=== PATIENT | female | born 1980 | race Caucasian/White ===

== ENCOUNTER 2017-12-31 09:22 | Emergency (ER) | payer MEDICAID ==
[2017-12-31 10:13] LABS: ADD MAN DIFF? NO
[2017-12-31 10:18] LABS: WHITE BLOOD COUNT 9.4 10^3/ul (4.8-10.8)
[2017-12-31 10:18] LABS: BASOPHIL # 0.1 10^3/ul (0.0-0.1); BASOPHILS % 0.5 % (0.0-2.0); EOSINOPHILS % 0.2 % (0.0-7.0); HEMOGLOBIN 12.3 g/dl (12.0-16.0); LYMPHOCYTES # 1.5 10^3/ul (0.8-2.9); LYMPHOCYTES % 15.8 % (15.0-51.0); MEAN CORPUSCULAR HEMOGLOBIN 29.3 pg (29.0-33.0); MEAN CORPUSCULAR HGB CONC 33.2 g/dl (32.0-37.0); MEAN CORPUSCULAR VOLUME 88.1 fl (82.0-101.0); MEAN PLATELET VOLUME 9.3 fl (7.4-10.4); MONOCYTE # 0.5 10^3/ul (0.3-0.9); MONOCYTES % 4.9 % (0.0-11.0); NEUTROPHIL # 7.3 10^3/ul (1.6-7.5); NEUTROPHILS % 77.7 % (39.0-77.0); PLATELET COUNT 307 10^3/UL (140-415)
[2017-12-31 10:26] LABS: ADD UMIC YES; UR ASCORBIC ACID 40 mg/dL (NEGATIVE); UR BACTERIA FEW /HPF (NONE SEEN); UR BILIRUBIN (Dip) NEGATIVE (NEGATIVE); UR BLOOD (Dip) 2+ mg/dL (NEGATIVE); UR CLARITY SLIGHTLY CLOUDY (CLEAR); UR COLOR YELLOW (YELLOW); UR GLUCOSE (Dip) NEGATIVE (NEGATIVE); UR KETONES (Dip) TRACE mg/dL (NEGATIVE); UR LEUKOCYTE ESTERASE (Dip) NEGATIVE Leu/ul (NEGATIVE); UR MUCUS FEW /HPF (NONE SEEN); UR NITRITE (Dip) NEGATIVE (NEGATIVE); UR RBC 5 /HPF (0-5); UR SPECIFIC GRAVITY (Dip) 1.025 (1.003-1.030); UR SQUAMOUS EPITHELIAL CELL MODERATE /HPF (FEW); UR TOTAL PROTEIN (Dip) NEGATIVE (NEGATIVE); UR UROBILINOGEN (Dip) NEGATIVE (NEGATIVE); UR WBC 1 /HPF (0-5)
[2017-12-31 10:38] LABS: INR 0.98; PROTIME 13.1 Sec (11.9-14.9)
[2017-12-31 10:39] LABS: PARTIAL THROMBOPLASTIN TIME 26.6 Sec (25.0-35.0)
== END 2017-12-31 12:09 | disposition home or self-care (01) ==
LOC: FTE 09:22
DX: O20.9 Hemorrhage in early pregnancy, unspecified (principal); R10.2 Pelvic and perineal pain; Z3A.19 19 weeks gestation of pregnancy
CPT/HCPCS: 36415; 76805; 81001; 84702; 85025; 85610; 85730; 86900; 86901; 99284-25

== ENCOUNTER 2018-01-02 08:35 | Observation (INO) | payer MEDICAID ==
[2018-01-02 09:08] LABS: ADD MAN DIFF? NO
[2018-01-02 09:15] LABS: BASOPHIL # 0.1 10^3/ul (0.0-0.1); BASOPHILS % 0.6 % (0.0-2.0); EOSINOPHILS # 0.1 10^3/ul (0.0-0.5); EOSINOPHILS % 0.5 % (0.0-7.0); HEMATOCRIT 35.9 % (37.0-47.0); HEMOGLOBIN 11.9 g/dl (12.0-16.0); LYMPHOCYTES # 1.7 10^3/ul (0.8-2.9); LYMPHOCYTES % 17.1 % (15.0-51.0); MEAN CORPUSCULAR HEMOGLOBIN 28.9 pg (29.0-33.0); MEAN CORPUSCULAR HGB CONC 33.1 g/dl (32.0-37.0); MEAN CORPUSCULAR VOLUME 87.1 fl (82.0-101.0); MEAN PLATELET VOLUME 9.3 fl (7.4-10.4); MONOCYTE # 0.5 10^3/ul (0.3-0.9); MONOCYTES % 4.6 % (0.0-11.0); NEUTROPHIL # 7.6 10^3/ul (1.6-7.5); NEUTROPHILS % 76.3 % (39.0-77.0); PLATELET COUNT 296 10^3/UL (140-415); RED BLOOD COUNT 4.12 10^6/ul (4.20-5.40); RED CELL DISTRIBUTION WIDTH 14.3 % (11.5-14.5)
[2018-01-02 09:31] LABS: ADD UMIC YES; UR ASCORBIC ACID NEGATIVE (NEGATIVE); UR BACTERIA FEW /HPF (NONE SEEN); UR BILIRUBIN (Dip) NEGATIVE (NEGATIVE); UR BLOOD (Dip) 3+ mg/dL (NEGATIVE); UR CLARITY SLIGHTLY CLOUDY (CLEAR); UR COLOR YELLOW (YELLOW); UR GLUCOSE (Dip) NEGATIVE (NEGATIVE); UR KETONES (Dip) NEGATIVE (NEGATIVE); UR LEUKOCYTE ESTERASE (Dip) NEGATIVE Leu/ul (NEGATIVE); UR MUCUS MANY /HPF (NONE SEEN); UR NITRITE (Dip) NEGATIVE (NEGATIVE); UR RBC 4 /HPF (0-5); UR SPECIFIC GRAVITY (Dip) 1.023 (1.003-1.030); UR SQUAMOUS EPITHELIAL CELL MODERATE /HPF (FEW); UR TOTAL PROTEIN (Dip) NEGATIVE (NEGATIVE); UR UROBILINOGEN (Dip) NEGATIVE (NEGATIVE); UR WBC 3 /HPF (0-5)
[2018-01-02] MEDS ORDERED: ONDANSETRON 4 MG INJ IV (10:30)
[2018-01-02] MEDS: SOD CHLORIDE 0.9% 1,000 ML IV ×2 (10:35→19:27)
[2018-01-02] MEDS: ACETAMINOPHEN 325 MG TAB PO (14:42)
[2018-01-03] MEDS: LACTATED RINGER'S 1,000 ML IV (03:51)
[2018-01-03 10:09] LABS: ADD MAN DIFF? NO
[2018-01-03 10:18] LABS: BASOPHILS % 0.4 % (0.0-2.0); EOSINOPHILS # 0.1 10^3/ul (0.0-0.5); EOSINOPHILS % 0.5 % (0.0-7.0); HEMATOCRIT 33.2 % (37.0-47.0); HEMOGLOBIN 11.3 g/dl (12.0-16.0); LYMPHOCYTES # 1.7 10^3/ul (0.8-2.9); LYMPHOCYTES % 16.2 % (15.0-51.0); MEAN CORPUSCULAR HEMOGLOBIN 29.8 pg (29.0-33.0); MEAN CORPUSCULAR VOLUME 87.6 fl (82.0-101.0); MEAN PLATELET VOLUME 9.9 fl (7.4-10.4); MONOCYTE # 0.5 10^3/ul (0.3-0.9); MONOCYTES % 4.7 % (0.0-11.0); NEUTROPHILS % 77.5 % (39.0-77.0); PLATELET COUNT 289 10^3/UL (140-415); RED BLOOD COUNT 3.79 10^6/ul (4.20-5.40); RED CELL DISTRIBUTION WIDTH 14.1 % (11.5-14.5)
[2018-01-03 10:18] LABS: WHITE BLOOD COUNT 10.3 10^3/ul (4.8-10.8)
== END 2018-01-03 13:16 | disposition home or self-care (01) ==
LOC: FTE 08:35 → PP1 10:26
DX: O44.32 Partial placenta previa with hemorrhage, second trimester (principal); O45.92 Premature separation of placenta, unspecified, second trimester; O20.0 Threatened abortion; Z3A.19 19 weeks gestation of pregnancy
CPT/HCPCS: 36415; 76805; 81001; 84702; 85025; 99217; 99285-25

== ENCOUNTER 2018-01-26 10:34 | Outpatient (CLI) | payer MEDICAID | END 2018-01-26 14:15 | disposition home or self-care (01) | LOC: OBT 10:34 → L-D 10:34 → OBT 14:15 | DX: O46.92 Antepartum hemorrhage, unspecified, second trimester (principal); Z3A.22 22 weeks gestation of pregnancy | CPT/HCPCS: 76815; 76817 ==

== ENCOUNTER 2018-05-05 05:14 | Inpatient (IN) | payer MEDICAID ==
[2018-05-05] MEDS ORDERED: LIDOCAINE 1% (MPF) 30 ML INJ INJ (06:00)
[2018-05-05] MEDS ORDERED: OXYTOCIN 30 UNITS/LR 500 ML IV ×3 (06:00→18:00)
[2018-05-05] MEDS ORDERED: METHYLERGONOVINE 0.2 MG INJ IM ×2 (06:00→18:00)
[2018-05-05] MEDS ORDERED: CARBOPROST 250 MCG INJ IM ×2 (06:00→18:00)
[2018-05-05] MEDS ORDERED: MISOPROSTOL 200 MCG TAB PR ×2 (06:00→18:00)
[2018-05-05] MEDS ORDERED: BUTORPHANOL 2 MG INJ IV (06:00)
[2018-05-05] MEDS: LACTATED RINGER'S 1,000 ML IV ×3 (06:26→13:50)
[2018-05-05] MEDS: AMPICILLIN 2 GM/NS (PMX) 100 ML IV (06:27)
[2018-05-05 06:46] LABS: ADD MAN DIFF? NO
[2018-05-05 06:48] LABS: WHITE BLOOD COUNT 9.5 10^3/ul (4.8-10.8)
[2018-05-05 06:48] LABS: BASOPHILS % 0.4 % (0.0-2.0); EOSINOPHILS % 0.4 % (0.0-7.0); HEMATOCRIT 36.2 % (37.0-47.0); HEMOGLOBIN 12.1 g/dl (12.0-16.0); LYMPHOCYTES # 2.1 10^3/ul (0.8-2.9); LYMPHOCYTES % 21.9 % (15.0-51.0); MEAN CORPUSCULAR HEMOGLOBIN 29.1 pg (29.0-33.0); MEAN CORPUSCULAR HGB CONC 33.4 g/dl (32.0-37.0); MONOCYTE # 0.7 10^3/ul (0.3-0.9); MONOCYTES % 7.1 % (0.0-11.0); NEUTROPHIL # 6.6 10^3/ul (1.6-7.5); PLATELET COUNT 258 10^3/UL (140-415); RED BLOOD COUNT 4.16 10^6/ul (4.20-5.40); RED CELL DISTRIBUTION WIDTH 14.5 % (11.5-14.5)
[2018-05-05] MEDS: BETAMET NA PHOS/AC(6 MG/ML) 2 ML INJ SYG IM (06:48)
[2018-05-05 07:50] LABS: INR 0.93; PROTIME 12.5 Sec (11.9-14.9)
[2018-05-05 07:51] LABS: PARTIAL THROMBOPLASTIN TIME 26.8 Sec (23.0-35.0)
[2018-05-05 08:00] LABS: HEPATITIS B SURFACE ANTIGEN NEGATIVE (NEGATIVE)
[2018-05-05] MEDS: AMPICILLIN 1 GM/NS (PMX) 50 ML IV ×2 (11:52→16:30)
[2018-05-05] MEDS: OXYTOCIN 30 UNITS/LR 500 ML IV ×3 (12:06→17:53)
[2018-05-05] MEDS ORDERED: FENTAnyl 2MCG/ML-ROPIV 0.2% 100 ML (13:04)
[2018-05-05] MEDS ORDERED: FENTAnyl 2MCG/ML-ROPIV 0.2% 100 ML BAG EPI (14:00)
[2018-05-05] MEDS ORDERED: NALOXONE (0.4 MG/ML) INJ IV (14:00)
[2018-05-05 15:14] LABS: RAPID PLASMA REAGIN NONREACTIVE (NR)
[2018-05-05] MEDS ORDERED: LIDOCAINE 1% (MPF) 30 ML INJ (15:30)
[2018-05-05] MEDS ORDERED: LANOLIN HPA 1 PKT TOP (18:00)
[2018-05-05] MEDS: IBUPROFEN 600 MG TAB PO ×2 (18:00→23:53)
[2018-05-05] MEDS ORDERED: ONDANSETRON 4 MG INJ IV (18:00)
[2018-05-05] MEDS ORDERED: OXYCODONE/ASPIRIN (4.88/325) TAB PO (18:00)
[2018-05-05] MEDS ORDERED: WITCH HAZEL/GLYCERIN PAD PR (18:00)
[2018-05-05] MEDS ORDERED: NACL 0.9% 3 ML SYG IV (18:00)
[2018-05-05] MEDS ORDERED: BENZOCAINE 20% 56 ML SPRAY TOP (18:00)
[2018-05-05] MEDS: SENNA/DOCUSATE NA (8.6MG/50MG) TAB PO (21:20)
[2018-05-06] MEDS: IBUPROFEN 600 MG TAB PO ×4 (06:01→23:53)
[2018-05-06 08:52] LABS: ADD MAN DIFF? NO
[2018-05-06] MEDS: SENNA/DOCUSATE NA (8.6MG/50MG) TAB PO ×2 (09:00→21:55)
[2018-05-06 09:23] LABS: BASOPHILS % 0.3 % (0.0-2.0); EOSINOPHILS % 0.1 % (0.0-7.0); HEMATOCRIT 28.7 % (37.0-47.0); HEMOGLOBIN 9.6 g/dl (12.0-16.0); LYMPHOCYTES # 2.3 10^3/ul (0.8-2.9); LYMPHOCYTES % 14.8 % (15.0-51.0); MEAN CORPUSCULAR HEMOGLOBIN 29.4 pg (29.0-33.0); MEAN CORPUSCULAR HGB CONC 33.4 g/dl (32.0-37.0); MEAN PLATELET VOLUME 10.1 fl (7.4-10.4); MONOCYTE # 1.1 10^3/ul (0.3-0.9); MONOCYTES % 6.8 % (0.0-11.0); PLATELET COUNT 217 10^3/UL (140-415); RED BLOOD COUNT 3.26 10^6/ul (4.20-5.40); RED CELL DISTRIBUTION WIDTH 14.6 % (11.5-14.5)
[2018-05-06 09:23] LABS: WHITE BLOOD COUNT 15.6 10^3/ul (4.8-10.8)
[2018-05-06 11:36] LABS: RUBELLA ANTIBODY - IGG 6.05 index
[2018-05-06] MEDS: OXYCODONE/ASPIRIN (4.88/325) TAB PO (13:52)
[2018-05-06] MEDS: POLYSACCHARIDE IRON COMPLEX CAP PO (21:55)
[2018-05-06] MEDS: DOCUSATE SODIUM 100 MG CAP PO (21:55)
[2018-05-07] MEDS: IBUPROFEN 600 MG TAB PO (05:51)
[2018-05-07] MEDS: POLYSACCHARIDE IRON COMPLEX CAP PO (09:53)
[2018-05-07] MEDS: DOCUSATE SODIUM 100 MG CAP PO (09:53)
[2018-05-07] MEDS: SENNA/DOCUSATE NA (8.6MG/50MG) TAB PO (09:53)
[2018-05-09 15:33] LABS: RUBELLA ANTIBODY - IGM <20.00 AU/mL
== END 2018-05-07 12:20 | disposition home or self-care (01) | DRG 807 ==
LOC: OBT 05:14 → L-D 05:15 → OBT 05:56 → L-D 05:56 → PP1 20:41
PROVIDERS: Obstetrics & Gynecology
PROC: 10E0XZZ Delivery of Products of Conception, External Approach (ICD-10-PCS; principal; 2018-05-05)
PROC: 0KQM0ZZ Repair Perineum Muscle, Open Approach (ICD-10-PCS; 2018-05-05)
DX: O60.14X0 Preterm labor third trimester with preterm delivery third trimester, not applicable or unspecified (principal); Z37.0 Single live birth; O70.1 Second degree perineal laceration during delivery; Z3A.36 36 weeks gestation of pregnancy
CPT/HCPCS: 62319; 76815; 85025; 85610; 85730; 86592; 86762; 86850; 86900; 86901; 87340; 90686